=== PATIENT | male | born 1980 | race Caucasian/White ===

== ENCOUNTER 2017-09-16 12:49 | Observation (INO) | payer OTHER ==
--- NOTE | 2017-09-16 13:16 | CPEKG ---
Heart Rate: 68 RR Interval: 882 P-R Interval: 144 QRSD Interval: 108 QT Interval: 424 QTC Interval: 451 P [place]: 69 QRS [place]: 83 T Wave [place]: 41 EKG Severity - NORMAL ECG - EKG Impression: SINUS RHYTHM Electronically Signed By: Chary Drake 16-Sep-2017 21:38:17
[2017-09-16] MEDS ORDERED: NS 1,000 ML IV ONE (13:38)
[2017-09-16 13:46] LABS: PLATELET COUNT 208 10^3/uL (150-400)
--- NOTE | 2017-09-16 13:50 | EDPHY ---
HPI/HX/ROS/PE/MDM Narrative: CHIEF COMPLAINT: Chest pain, near-syncope. HISTORY OF PRESENT ILLNESS: This patient is a 36 year old male arriving with his . He has had chest pain intermittently for the past month, 2-3 times per week. He has had similar symptoms in the past related to anxiety. He endorses occasional heartburn but this does not feel similar to his current symptoms. He has left-sided chest discomfort and a squeezing sensation in his back just below his scapula on the left. The discomfort occasionally radiates to his left shoulder and down the inside of his arm. He endorses increased pain with deep inspiration. These episodes usually last 5-10 minutes and wax and wane throughout. They are typically not associated with exertion, however yesterday, he has a similar pain while running. This morning, he was at work and had worse chest pain than usual and then had a sensation of near-syncope. He sat with his head between his knees and became diaphoretic. He has never felt lightheaded with his chest discomfort in the past. He denies falling or fainting. Currently, his symptoms have resolved completely. The patient denies personal history of hypertension, diabetes, hyperlipidemia. His father had a stent placement in his 50s. Family history otherwise negative for cardiac events. The patient had a treadmill stress test and echocardiogram in [place] 8-10 years ago for chest pain. Workup was negative at that time. No fever, chills, shortness of breath, palpitations, vomiting, diarrhea, urinary complaints, headache. REVIEW OF SYSTEMS: Aside from elements discussed in the HPI, a comprehensive 10-point review of systems was reviewed and is negative. PAST MEDICAL HISTORY: Denies. SOCIAL HISTORY: . at bedside. Moderate alcohol use. Intermittent cigarette use over the past 15 years. Denies any illicit drug use. VITAL SIGNS: Reviewed by me GENERAL: Well-developed, well-nourished, resting comfortably in no respiratory distress. HEENT: Atraumatic. Eyes: No icterus, no injection. Mouth: moist mucous membranes. No erythema or lesions. Neck: supple with no adenopathy. LUNGS: Clear to auscultation bilaterally, no wheezes, rhonchi or rales. CARDIAC: Regular rate and rhythm, no rubs, murmurs or gallops. ABDOMEN: Soft, nontender, nondistended, bowel sounds normal. BACK: No CVA tenderness. EXTREMITIES: No trauma. No edema. Range of motion is normal throughout. NEURO: Alert and oriented, grossly nonfocal. SKIN: Faint macular rash over RUQ. The skin of his back is warm to the touch. PSYCHIATRIC: Normal mentation, no agitation. Portions of this note were transcribed by a biomedical field service engineer. I personally performed a history, physical exam, medical decision making, and confirmed accuracy of information the transcribed note. ED Course: 36 y/o male presents with one month history of intermittent chest pain, most recently today with associated lightheadedness. Exam unremarkable. Plan for EKG , chest x-ray, labs including CBC, chemistries, liver, lipase, troponin. 12-LEAD EKG: Please see the full report in [facility]. My interpretation: Normal sinus rhythm, no evidence of ischemia. Initial troponin 0.02. Chest x-ray negative for acute processes. Possible atelectasis or trace effusions at costophrenic angles. Reviewed laboratory studies. Labs largely unremarkable. Discussed heart score with the patient. Plan for repeat troponin in 4 hours and continued observation here in the emergency department. Repeat troponin, done as a point of care troponin, is negative. Spoke with Dr. Rainey, zoo veterinarian regarding plan of care and urgent outpatient risk stratification. Dr. Rainey recommends patient be admitted to the hospital. He recommends admission for this patient. 17:35 Reassessed patient. Discussed results. Discussed plan for admission for further workup. The patient is comfortable with this plan. 17:55 Consulted with hospitalist service. Dr. Sarkar accepts admission for chest pain, near-syncope. MDM: After history and physical examination, the differential for chest pain was considered, including but not limited to, myocardial ischemia, acute coronary syndrome, pulmonary embolus, chest wall pain, pleural inflammation and pulmonary infectious causes. - Data Points Imaging Results: Imaging Impressions Chest X-Ray 09/16/17 13:37 Impression: 1. Hyperexpanded lungs which could be related to air-trapping/airways disease or deep inspiratory effort. 2. Blunting of the costophrenic angles, possibly related to atelectasis or trace effusions. Imaging: I viewed and interpreted images myself Laboratory Results: Laboratory Results 09/16/17 13:32 09/16/17 13:32 09/16/17 09/16/17 09/16/17 17:06 13:32 13:32 WBC RBC Hgb Hct MCV MCH MCHC RDW Plt Count MPV Neut % (Auto) Lymph % (Auto) [place] % (Auto) Eos % (Auto) Baso % (Auto) Nucleat RBC Rel Count Absolute Neuts (auto) Absolute Lymphs (auto) Absolute Monos (auto) Absolute Eos (auto) Absolute Basos (auto) Absolute Nucleated RBC Immature Gran % Immature Gran # D-Dimer < 0.27 ug/mLFEU ug/mLFEU (0.00-0.50) Sodium 138 mEq/L mEq/L (135-145) Potassium 4.2 mEq/L mEq/L (3.3-5.0) Chloride 100 mEq/L mEq/L (97-110) Carbon Dioxide 25 mEq/l mEq/l (22-31) Anion Gap 13 mEq/L mEq/L (8-16) BUN 17 mg/dL mg/dL (7-23) Creatinine 1.1 mg/dL mg/dL (0.7-1.3) Estimated GFR > 60 Glucose 155 mg/dL H mg/dL (70-100) Calcium 9.4 mg/dL mg/dL (8.5-10.4) POC Troponin I 0.00 ng/mL ng/mL (0.00-0.08) Troponin I 09/16/17 09/16/17 13:32 13:29 WBC 5.42 10^3/uL 10^3/uL (3.80-9.50) RBC 4.80 10^6/uL 10^6/uL (4.40-6.38) Hgb 15.2 g/dL g/dL (13.7-17.5) Hct 42.8 % % (40.0-51.0) MCV 89.2 fL fL (81.5-99.8) MCH 31.7 pg pg (27.9-34.1) MCHC 35.5 g/dL g/dL (32.4-36.7) RDW 12.1 % % (11.5-15.2) Plt Count 208 10^3/uL 10^3/uL (150-400) MPV 10.7 fL fL (8.7-11.7) Neut % (Auto) 68.1 % % (39.3-74.2) Lymph % (Auto) 24.4 % % (15.0-45.0) [place] % (Auto) 6.3 % % (4.5-13.0) Eos % (Auto) 0.4 % L % (0.6-7.6) Baso % (Auto) 0.6 % % (0.3-1.7) Nucleat RBC Rel Count 0.0 % % (0.0-0.2) Absolute Neuts (auto) 3.70 10^3/uL 10^3/uL (1.70-6.50) Absolute Lymphs (auto) 1.32 10^3/uL 10^3/uL (1.00-3.00) Absolute Monos (auto) 0.34 10^3/uL 10^3/uL (0.30-0.80) Absolute Eos (auto) 0.02 10^3/uL L 10^3/uL (0.03-0.40) Absolute Basos (auto) 0.03 10^3/uL 10^3/uL (0.02-0.10) Absolute Nucleated RBC 0.00 10^3/uL 10^3/uL (0-0.01) Immature Gran % 0.2 % % (0.0-1.1) Immature Gran # 0.01 10^3/uL 10^3/uL (0.00-0.10) D-Dimer Sodium Potassium Chloride Carbon Dioxide Anion Gap BUN Creatinine Estimated GFR Glucose Calcium POC Troponin I Troponin I < 0.012 ng/mL ng/mL (0.000-0.034) Medications Given: Discontinued Medications Aspirin (Aspirin) 324 mg PO EDNOW ONE Stop: 09/16/17 14:01 Last Admin: 09/16/17 14:04 Dose: 324 mg Sodium Chloride (Ns) 1,000 mls @ 0 mls/hr IV ONCE ONE; Wide Open PRN Reason: Protocol Stop: 09/16/17 13:39 Last Admin: 09/16/17 13:41 Dose: 1,000 mls Point of Care Test Results: Chemistry 09/16/17 17:06 POC Troponin I 0.00 ng/mL ng/mL (0.00-0.08) General Time Seen by Provider: 09/16/17 13:32 Initial Vital Signs: Initial Vital Signs Temperature (C) 36.8 C 09/16/17 13:02 Heart Rate 71 09/16/17 13:02 Respiratory Rate 16 09/16/17 13:02 Blood Pressure 108/91 H 09/16/17 13:02 O2 Sat (%) 98 09/16/17 13:02 O2 Delivery Mode Room Air Allergies/Adverse Reactions: No Known Allergies Allergy (Unverified 09/16/17 13:02) Home Medications: Medication Instructions Recorded Herbals/Supplements -Info Only 1 ea PO DAILY 09/16/17 Departure - Departure Disposition: [facility] Inpatient Acute Clinical Impression: Near syncope Chest pain Qualifiers: Chest pain type: other chest pain Qualified Code(s): R07.89 - Other chest pain Condition: Good Report Scribed for: Chary Drake Report Scribed by: Fabi Madrid Date of Report: 09/16/17 Time of Report: 13:50
[2017-09-16] MEDS ORDERED: ASPIRIN 81 MG CHEWABLE TAB PO ONE (14:00)
[2017-09-16] MEDS ORDERED: ONDANSETRON DISINTEGRATING 4 MG TAB PO PRN (18:00)
[2017-09-16] MEDS ORDERED: ACETAMINOPHEN 325 MG TAB PO PRN (18:00)
[2017-09-16] MEDS ORDERED: ONDANSETRON 4 MG/2 ML VIAL IVP PRN (18:00)
--- NOTE | 2017-09-16 19:05 | PDGENHP ---
History and Physical - Chief Complaint Acute chest pain - History of Present Illness PCP: None HPI: 36 yo M p/w acute chest pain characterized as shooting pains located in L chest, arm, and back w/ onset of symptoms approx 1 month ago and duration intermittent thereafter. The patient reports that the symptoms occasionally occur with activity, and occasionally occur at rest, and on occasion he is able to alleviate them by deep breathing, and other times they are alleviated without any intervention at all. On the day prior to presentation, there were particularly exacerbated by physical activity, and alleviated with rest. On the day of this presentation, the patient reports that around 8:00 a.m. He was experiencing the symptoms at rest, they were associated with diaphoresis, nausea , shortness of breath, and were of approximately 5-10 minute in duration. He then experienced the ongoing nausea, diaphoresis, shortness of breath lingering over the next couple hours. The symptoms were somewhat alleviated by resting and lying supine. The patient reports similar symptoms of pain with anxiety approximately 10 years ago, and he underwent stress testing as well as echocardiogram in [place], and was told that the results of the tests were normal, and the symptoms were secondary to anxiety. His last primary care point was approximately 2 years ago , and he was prescribed medication for anxiety, but he has not been taking it. He does endorse that his life has been particularly stressful over the past month, and he reports that he has been smoking approximately 1/2 to 2 packs of cigarettes per week. He also endorses that his last alcohol intake was Saturday night, and a consisted of approximately 7 alcoholic beverages. He does endorse that his chest discomfort symptoms seem to be worse on days after he has consumed this quantity of alcohol. He is otherwise unable to identify any temporal association of symptoms with oral intake or with body position. History Information - Allergies/Home Medication List Allergies/Adverse Reactions: No Known Allergies Allergy (Unverified 09/16/17 13:02) Home Medications: Herbals/Supplements -Info Only 1 ea PO DAILY 09/16/17 [Last Taken 09/15/17] I have personally reviewed and updated: family history, medical history, social history, surgical history - Past Medical History Additional medical history: Anxiety. Gastroesophageal reflux disease - Surgical History Reports: no pertinent surgical hx - Family History Additional family history: Father with stent placement in his 50s, no family history of venous thromboembolism - Social History Smoking Status: Current some day smoker Alcohol Use: Other (Occasionally drinks 5-7 alcoholic beverages at a time) Drug Use: None Additional social history: Works in a warehouse, is physically active and exercises regularly Review of Systems Review of Systems: ROS: 10pt was reviewed & negative except for what was stated in HPI & below Constitutional: Reports: other (Diaphoresis) Cardiac: Reports: chest pain Respiratory: Reports: shortness of breath Gastrointestinal: Reports: nausea Physical Exam Physical Exam: Temp Pulse Resp BP Pulse Ox 36.8 C 56 L 16 130/88 H 100 09/16/17 18:07 09/16/17 18:07 09/16/17 18:07 09/16/17 18:07 09/16/17 18:07 Constitutional: no apparent distress, appears nourished, not in pain Eyes: PERRL, anicteric sclera, EOMI Ears, Nose, Mouth, Throat: moist mucous membranes, hearing normal, ears appear normal, no oral mucosal ulcers Cardiovascular: regular rate and rhythym, no murmur, rub, or gallop, No edema Respiratory: no respiratory distress, no rales or rhonchi, clear to auscultation Gastrointestinal: normoactive bowel sounds, soft, non-tender abdomen, no palpable masses Skin: warm, No abrasion, No rash Musculoskeletal: other (Full range of motion bilateral shoulders without any pain induced, no tenderness palpation over the left pectoralis muscles) Neurologic: AAOx3, sensation intact bilaterally, No weakness Psychiatric: interacting appropriately, not anxious, not encephalopathic, thought process linear Lab Data & Imaging Review 09/16/17 13:32 09/16/17 13:32 WBC 5.42 10^3/uL (3.80-9.50) 09/16/17 13:32 RBC 4.80 10^6/uL (4.40-6.38) 09/16/17 13:32 Hgb 15.2 g/dL (13.7-17.5) 09/16/17 13:32 Hct 42.8 % (40.0-51.0) 09/16/17 13:32 MCV 89.2 fL (81.5-99.8) 09/16/17 13:32 MCH 31.7 pg (27.9-34.1) 09/16/17 13:32 MCHC 35.5 g/dL (32.4-36.7) 09/16/17 13:32 RDW 12.1 % (11.5-15.2) 09/16/17 13:32 Plt Count 208 10^3/uL (150-400) 09/16/17 13:32 MPV 10.7 fL (8.7-11.7) 09/16/17 13:32 Neut % (Auto) 68.1 % (39.3-74.2) 09/16/17 13:32 Lymph % (Auto) 24.4 % (15.0-45.0) 09/16/17 13:32 [place] % (Auto) 6.3 % (4.5-13.0) 09/16/17 13:32 Eos % (Auto) 0.4 % (0.6-7.6) L 09/16/17 13:32 Baso % (Auto) 0.6 % (0.3-1.7) 09/16/17 13:32 Nucleat RBC Rel Count 0.0 % (0.0-0.2) 09/16/17 13:32 Absolute Neuts (auto) 3.70 10^3/uL (1.70-6.50) 09/16/17 13:32 Absolute Lymphs (auto) 1.32 10^3/uL (1.00-3.00) 09/16/17 13:32 Absolute Monos (auto) 0.34 10^3/uL (0.30-0.80) 09/16/17 13:32 Absolute Eos (auto) 0.02 10^3/uL (0.03-0.40) L 09/16/17 13:32 Absolute Basos (auto) 0.03 10^3/uL (0.02-0.10) 09/16/17 13:32 Absolute Nucleated RBC 0.00 10^3/uL (0-0.01) 09/16/17 13:32 Immature Gran % 0.2 % (0.0-1.1) 09/16/17 13:32 Immature Gran # 0.01 10^3/uL (0.00-0.10) 09/16/17 13:32 D-Dimer < 0.27 ug/mLFEU (0.00-0.50) 09/16/17 13:32 Sodium 138 mEq/L (135-145) 09/16/17 13:32 Potassium 4.2 mEq/L (3.3-5.0) 09/16/17 13:32 Chloride 100 mEq/L (97-110) 09/16/17 13:32 Carbon Dioxide 25 mEq/l (22-31) 09/16/17 13:32 Anion Gap 13 mEq/L (8-16) 09/16/17 13:32 BUN 17 mg/dL (7-23) 09/16/17 13:32 Creatinine 1.1 mg/dL (0.7-1.3) 09/16/17 13:32 Estimated GFR > 60 09/16/17 13:32 Glucose 155 mg/dL (70-100) H 09/16/17 13:32 Calcium 9.4 mg/dL (8.5-10.4) 09/16/17 13:32 POC Troponin I 0.00 ng/mL (0.00-0.08) 09/16/17 17:06 Troponin I < 0.012 ng/mL (0.000-0.034) 09/16/17 13:29 Visualized and Interpreted Chest x-ray results: Yes Chest X-Ray results: no infiltrate, other (Flat diaphragms, hyperinflated lungs) Visualized and Interpreted EKG results: Yes EKG Interpretation: Positive for: other (Normal sinus rhythm with likely left ventricular hypertrophy) Assessment & Plan Assessment: 36-year-old male presents with acute chest pain Plan: 1. Chest pain. Acute, new problem this provider, further workup indicated. Potential etiologies include acute coronary syndrome with chest pain at rest versus gastroesophageal reflux disease versus anxiety disorder with underlying undiagnosed obstructive pulmonary disease -cycle cardiac enzymes -monitor on telemetry -rule out PE with D-dimer -if troponins negative, will get exercise EKG stress test in a.m. Given his story which could be consistent with angina -if stress test negative, trial PPI, have patient follow up with outpatient PCP to facilitate management of suspected GERD as well as anxiety, smoking, alcohol abuse -recommend outpatient pulmonary function test through PCP office 2. Hyperglycemia. Acute, reviewed outside records including 06/21/2015 demonstrating hemoglobin A1c 5.7% at that time, recheck hemoglobin A1c, potentially secondary to stress response in the setting of discomfort 3. Anxiety. Patient seems to suffer from a chronic anxiety disorder and/or episodic anxiety, and he should both establish with a primary care provider as well as seek outpatient mental health assistance -outside records demonstrate previous TSH level elevated, recommend repeating at this time for optimal management of potential hypothyroidism in the setting of possible mood disorder -avoid benzodiazepine anxiolytics in the setting episodic alcohol abuse Diet. Regular, NPO in a.m. Prophylaxis. Low risk, SCDs Code. Full Disposition. Anticipated discharge is 09/17, pending further workup as outlined above. I have discussed patient's presentation with Dr. Chary Drake, she has reported to me that she discussed the case with Dr. Syd Rainey who recommended observation for urgent cardiac risk stratification given the potential anginal nature of the patient's pain.
[2017-09-17 08:07] VITALS: BP 130/86
[2017-09-17] MEDS ORDERED: Herbals/Supplements -Info Only PO SCH (09:00)
--- NOTE | 2017-09-17 11:02 | CPR ---
[f rep st] NONINVASIVE CARDIAC PROCEDURE REPORT INDICATION FOR STRESS TESTING: Ongoing recurring chest pressure. Family history of early coronary a rtery disease. PRE: After obtaining informed consent, patient was placed on electrocardiogram. Initial EKG shows s inus rhythm, normal axis, no significant ST or T-wave abnormalities suggesting of ischemia. Patient denies any chest pain, shortness of breath, or symptoms suggesting of ischemia. Initial blood pressu re of 122/78. STRESS: The patient was placed on exercise treadmill, following standard David protocol with the myriam denise findings: 1. The patient exercised for 12 minutes. 2. Obtaining a heart rate of 168 beats per minute, which was 91% of maximal predicted heart rate. 3. 12.2 METS. 4. Patient had no significant ST shifts at peak exercise suggesting of ischemia. 5. Patient had no chest pain or symptoms suggesting of ischemia throughout testing. 6. BP response: Resting 122/78, peak 170/82. 7. SpO2 remained greater than 90% throughout testing. 8. Patient was noted to have rare premature ventricular contractions during stress stage, none durin g recovery. 9. Test was stopped due to maximum effort. 10. Vivar treadmill score of 12, placing him at low cardiovascular risk. RECOVERY: Patient recovered for 5 minutes with heart rate returning back to baseline, final blood pr essure was 152/78, he remained asymptomatic of symptoms suggesting of ischemia. The patient was take n back to the PCU. IMPRESSION: A 36-year-old male with family history of early-onset coronary artery disease with recur ring chest pressure underwent exercise treadmill testing for evaluation of ischemia. The patient not ed to have no ST shifts at peak exercise suggesting of ischemia, normal BP response, Vivar treadmill s core of 12, placing him at low cardiovascular risk. Results reviewed with Dr. Bonilla and call to Dr. Granado of hospital services. /[id number]/MODL
--- NOTE | 2017-09-17 11:17 | GDS ---
[f rep st] DISCHARGE SUMMARY ALL DIAGNOSES: 1. Chest pain. 2. Anxiety. 3. Reflux. 4. Mild hyperglycemia. 5. Mildly elevated thyroid stimulating hormone. HOSPITAL COURSE: A 36-year-old man admitted with chest pain. EKG was normal. D-dimer was negative. Troponins on serial checks have been negative. He had a negative exercise EKG test. Doubt that th is is any life-threatening condition. Suspect more likely related to reflux or anxiety. He will roxie e Zantac as needed if he has another episode like this. Recommended that he also follow up with a [facility] physician. I have given him Dr. Villatoro's name. He has a mildly elevated TSH of 5.9. I have recommended that he have this rechecked as an outpatient in about 1 month. This could be done by his primary care physician. He also has anxiety. He will follow up with a psychologist for this. DISPOSITION: He is discharged home in stable condition. /[id number]/MODL
== END 2017-09-17 12:22 | disposition home or self-care (01) ==
LOC: F2W 18:03
PROVIDERS: ADMIT Internal Medicine; ATTEND Student in an Organized Health Care Education/Training Program
DX: R07.9 Chest pain, unspecified (principal); R55 Syncope and collapse; F41.9 Anxiety disorder, unspecified; K21.9 Gastro-esophageal reflux disease without esophagitis; R73.9 Hyperglycemia, unspecified; R94.6 Abnormal results of thyroid function studies; E86.9 Volume depletion, unspecified; F17.210 Nicotine dependence, cigarettes, uncomplicated; Z82.49 Family history of ischemic heart disease and other diseases of the circulatory system
CPT/HCPCS: 71046; 93005; 93017; G0378; 84484-PO